=== PATIENT | female | born 1975 | race Caucasian/White ===

== ENCOUNTER 2019-06-22 10:53 | Inpatient (IN) | payer OTHER ==
[~2019-06-22] VITALS: Ht 157.5 cm; Wt 71.8 kg
[2019-06-22 11:02] VITALS: Ht 157.5 cm; Wt 71.8 kg
--- NOTE | 2019-06-22 11:06 | NUR ---
PT C/O NONRADIATING PRESSURE-LIKE CHEST PAIN WITH SOB, DIZZINESS, AND, N/V SINCE NOON YESTERDAY, -LOC, PT REPORTS BEING EMOTIONALLY UPSET AFTER AN ARGUMENT WITH HER SON YESTERDAY "BECAUSE HE TOOK PILLS AT SCHOOL AND IT WORRIED ME" PT AAOX4, RESPS E/U, LUNGS CTA, SKIN PINK DRY WARM, -DIZZINESS +NAUSEA -VOMITING AT THIS TIME, +PMSC TO ALL EXTREMITIES, PT GOWNED AND PLACED ON FULL CM, NSR, WITH SPOUSE AT BEDSIDE, PT AWAITING MSE
--- NOTE | 2019-06-22 11:08 | NUR ---
PT AMBULATORY WITH STEADY GAIT TO RESTROOM
--- NOTE | 2019-06-22 11:42 | NUR ---
MD AMBROCIO AT BEDSIDE PERFORMING MSE
--- NOTE | 2019-06-22 12:04 | NUR ---
PORTABLE CXR AT BEDSIDE
[2019-06-22 12:10] LABS: PLATELET COUNT 352 x10^3mcL (130-400); RED CELL DISTRIBUTION WIDTH 13.3 % (11.5-14.5)
--- NOTE | 2019-06-22 12:11 | NUR ---
PT DESAT TO 89 PERCENT SPO2 VIA RA, PT PLACED ON 2L O2 VIA NC, WITH SPO2 95 PERCENT, RESPS E/Y, NSR ON CM, SKIN PINK DRY AND WARM, MD AMBROCIO MADE AWARE,
--- NOTE | 2019-06-22 12:13 | NUR ---
PT MEDICATED PER MD ORDER SEE EMAR
[2019-06-22 12:16] LABS: CALCIUM 8.6 mg/dL (8.5-10.1); CARBON DIOXIDE 27.4 mmol/L (21-32); CHLORIDE SERUM 104 mmol/L (98-107); CREATININE SERUM 0.9 mg/dL (0.6-1.0); GFR1 > 60 mL/min; GLUCOSE SERUM 122 mg/dL (74-106); POTASSIUM SERUM 3.8 mmol/L (3.5-5.1); SODIUM SERUM 140 mmol/L (136-145)
[2019-06-22 12:21] LABS: ALBUMIN 3.4 g/dL (3.4-5.0); ALKALINE PHOSPHATASE 71 U/L (46-116); ALT/SGPT 22 U/L (14-59); AST/SGOT 19 U/L (15-37); BILIRUBIN TOTAL 1.1 mg/dL (0.20-1.00); TOTAL PROTEIN, SERUM 7.3 g/dL (6.4-8.2)
[2019-06-22 12:36] LABS: BAND NEUTROPHIL 11 % (0-10); BASOPHIL 0 % (0-2); MONOCYTE 3 % (0-7); SEGMENTED NEUTROPHILS 85 % (37-75)
[2019-06-22 12:37] LABS: PLATELET MORPHOLOGY PLATELETS NORMAL; rbc morphology (normal/abnorm) ABNORMAL (NORMAL)
--- NOTE | 2019-06-22 13:07 | NUR ---
PT RESTING IN POSITION OF COMFORT, RESPS E/U, NSR ON CM, SPOUSE AT BEDSIDE, WILL CONTINUE TO MONITOR
--- NOTE | 2019-06-22 13:14 | NUR ---
DR AMBROCIO MADE AWARE OF WBC 27.5
--- NOTE | 2019-06-22 14:16 | NUR ---
PT DENIES SOB AT THIS TIME, SPO2 94 PERCENT VIA RA, RESPS E/U, NSR ON CM, ROCEPHIN INFUSING PER MD ORDER AND EMAR, WILL CONTINUE TO MONITOR
[2019-06-22] MEDS ORDERED: ZYRTEC10 MG PO (14:17)
--- NOTE | 2019-06-22 15:18 | NUR ---
PT ASLEEP BUT AROUSABLE IN POSITION OF COMFORT, RESPS E/U, VSS, NSR ON CM, CALL LIGHT WITHIN REACH
[2019-06-22] MEDS ORDERED: ZYRTEC ALLERGY10 MG PO (15:54)
--- NOTE | 2019-06-22 16:38 | NUR ---
PT STS "I FEEL A LOT BETTER" RESPS E/U, VSS, NSR ON CM, SPOUSE AT BEDSIDE
--- NOTE | 2019-06-22 17:12 | NUR ---
REPORT GIVEN TO TO TIARRA PERERA, SHE INFORMED ME SHE WILL CONTACT ME WHEN THE PT RM IS CLEANED AND READY TO BE ADMITTED.
--- NOTE | 2019-06-22 17:50 | NUR ---
PT RESTING IN POSITION OF COMFORT. RESPS E/U, VSS, AT BEDSIDE
--- NOTE | 2019-06-22 18:01 | NUR ---
CONTACTED TIARRA PERERA, RM IS NOW CLEAN FOR PT ADMIT
[2019-06-22 18:05] VITALS: BP 100/63
--- NOTE | 2019-06-22 18:30 | NUR ---
ADMITTED PT FROM ED WITH DX PNA. PT IS A/A/OX4 DENIES STEWART. RESP EVEN AND UNLABORED WITH DIMINISHED BS BILAT WORST TO BILAT BASES. ON RA WITH DRY CAUGH. DENIES ANY SOB/CP/PRESSURE AT THIS TIME. REPORTS EPISODE OF CP, BACK PAIN AND N/V IN ED. REPORTS MILD DIZZINESS AT THIS TIME. CURRENTLY RELIEVED. ABD SOFT, NONTENDER WITH ACTIVE BS X4. DENIES ANY N/V AT THIS TIME. VOIDING FREELY AND AMBULATORY. SKIN WARM, DRY AND INTACT. IV SL TO LAC. ORIENTED TO ROOM AND CALL LIGHT. CALL LIGHT WITH IN REACH NEEDS ATTENDED TO.
[2019-06-22 18:39] VITALS: BP 122/71
--- NOTE | 2019-06-22 19:10 | NUR ---
RECEIVED REPORT FROM TIARRA PERERA. WILL RESUME CARE.
--- NOTE | 2019-06-22 19:25 | NUR ---
RECIEVED PT AAOX4. SPEECH CLEAR. ABLE TO FOLLOW COMMANDS AND MAKE NEEDS KNOWN. PUPILS 3MM BRISK. BREATHING E/U. ON RA. LUNG SOUNDS DIMINISHED TO BILATERAL LOBES. S1S2 AUSCULTATED WITH NO MURMURS NOTED. PT STATES NO PAIN AT THIS TIME. CAP REFILL <3 SEC. PULSES PALPABLE. NO EDEMA NOTED. L AC 20G WNL, DRESSING CDI. NS INFUSING AT 50CC/HR. SKIN INTACT AND COLOR APPROPRIATE FOR RACE. ABDOMEN SOFT, NONTENDER. BS ACTIVE X 4. PT DENIES ANY N/V AT THIS TIME. VOIDS FREELY AND STATES NO URINARY COMPLAINTS. BED IN LOW POSITION. CALL LIGHT WITHIN REACH. AT BEDSIDE. WILL CONTINUE TO MONITOR.
--- NOTE | 2019-06-22 21:13 | NUR ---
PT REFUSED PNEUMONIA VACCINE AT THIS TIME. PT STATES "I WOULD LIKE TO PERSONALLY TALK WITH THE DOCTOR TOMORROW ABOUT IT". VACCINE DISCONTINUED AT THIS TIME AND WILL ENDORSE TO ONCOMING RN.
[2019-06-22 21:17] VITALS: BP 94/47
--- NOTE | 2019-06-23 02:35 | NUR ---
PT SLEEPING COMFORTABLY IN BED AT THIS TIME. NAD NOTED. BREATHING E/U.
--- NOTE | 2019-06-23 04:24 | NUR ---
PT O2SAT AT 88% ON RA. PUT PT ON 2L NC, O2SAT 96%.
[2019-06-23 04:56] VITALS: BP 99/56
[2019-06-23 06:35] LABS: CALCIUM 8.4 mg/dL (8.5-10.1); CARBON DIOXIDE 28.9 mmol/L (21-32); CREATININE SERUM 1.1 mg/dL (0.6-1.0); POTASSIUM SERUM 3.8 mmol/L (3.5-5.1)
[2019-06-23 06:42] LABS: BASOPHIL % 0.2 % (0-2); PLATELET COUNT 331 x10^3mcL (130-400); RED CELL DISTRIBUTION WIDTH 13.2 % (11.5-14.5)
--- NOTE | 2019-06-23 07:30 | NUR ---
RECEIVED PATIENT SITTING UP IN BED. ALERT ORIENTED DENIES ANY CHEST PAIN COUGH OR SOB. IVF INFUSING WELL, SITE PATENT. PATIENT WAS ON O2 AT 2L AT THIS TIME, O2 SAT 98% SO O2 DISCONTINUED AT THIS TIME AND WILL MONITOR. LUNGS CLEAR RESP EVEN AND UNLABORED. AMBLATES AD JOEY. NO EDEMA NOTED PULSES PALABLE. NO ACUTE DISTRESS NOTED.
[2019-06-23 08:16] VITALS: BP 115/70
[2019-06-23 12:07] VITALS: BP 107/57
--- NOTE | 2019-06-23 13:41 | NUR ---
PATIENT HAS BEEN OOB AMBULATING IN HER ROOM. CONTINUES TO DENY AND COUGH OR SOB OR PAIN. BACK IN BED WATCHING TV. IVF INFUSING WELL. WILL CONTINUE TO MONITOR.
--- NOTE | 2019-06-23 15:28 | NUR ---
PATIENT REMAINS IN BED WATCHING TV. CONTINUES TO DENY ANY PAIN, SOB OR COUGH. NO CHANGE IN CONDITIION NOTED.
[2019-06-23 16:22] VITALS: BP 104/64
--- NOTE | 2019-06-23 16:49 | NUR ---
PATIENT REMAINS IN BED WATCHING TV. NO CHANGE IN CONDITION NOTED.
--- NOTE | 2019-06-23 17:01 | NUR ---
PATIENT'S PLAN OF CARE WAS DISCUSSED AND REVIEWED WITH NURSES AIDE:GREGOR PANDA. I HAVE REVIEWED THE DATA COLLECTION BY NURSES AIDE (NAME):GREGOR PANDA. ENTERED ON (DATE/TIME):06/23/19. I CONCUR WITH THE DATA AND ANY EXCEPTIONS OR COMMENTS ARE LISTED BELOW:
--- NOTE | 2019-06-23 17:15 | NUR ---
I HAVE REVIEWED THE DATA COLLECTION BY DEX (NAME): GREGOR PANDA ENTERED ON (DATE/TIME): 06/23/19 I CONCUR WITH THE DATA AND ANY EXCEPTIONS OR COMMENTS ARE LISTED BELOW:
[2019-06-23 19:38] VITALS: BP 127/78
--- NOTE | 2019-06-23 22:18 | NUR ---
RECEIVED PT IN BED TALKING TO HER SPOUSE , PT DENY SOB AT THE MOMENT , LUNG SOUNDS DIMINISSHED , NO RESP DISTRESS NOTED, HL TO LAC INTACT FLUSHING WELL . CALL LIGHT WIHIN PT'S REACH WILL CON'T TO MONITOR PT .
--- NOTE | 2019-06-24 02:58 | NUR ---
I HAVE REVIEWED THE DATA COLLECTION BY [employer]IO TECHNICIAN (NAME):JUAN DANIEL CH ENTERED ON (DATE/TIME): I CONCUR WITH THE DATA AND ANY EXCEPTIONS OR COMMENTS ARE LISTED BELOW:
[2019-06-24 04:48] VITALS: BP 104/60
[2019-06-24 06:24] LABS: BASOPHIL % 0.7 % (0-2); PLATELET COUNT 337 x10^3mcL (130-400); RED CELL DISTRIBUTION WIDTH 13.7 % (11.5-14.5)
--- NOTE | 2019-06-24 06:31 | NUR ---
NO RESP DISTRESS NOTED,. ALL DUE MEDS GIVEN NO REACTION NOTED, HL PATENT .
[2019-06-24 06:36] LABS: CALCIUM 8.4 mg/dL (8.5-10.1); CHLORIDE SERUM 107 mmol/L (98-107); CREATININE SERUM 0.9 mg/dL (0.6-1.0); GFR1 > 60 mL/min; GLUCOSE SERUM 91 mg/dL (74-106); POTASSIUM SERUM 3.9 mmol/L (3.5-5.1); SODIUM SERUM 143 mmol/L (136-145)
--- NOTE | 2019-06-24 07:23 | NUR ---
PT LYING IN BED A/A. BREATHING EQUAL UNLABORED ON RA. NO C/O COUGH/ PAIN AT THIS TIME. NO REDNESS/SWELLING TO IV SITE. BED IN LOW POSITION, CALL LIGHT IN REACH, WILL CONTINUE TO MONITOR
[2019-06-24] MEDS ORDERED: LEVAQUIN750 MG PO (08:32)
[2019-06-24 09:06] VITALS: BP 124/68
[2019-06-24] MEDS ORDERED: ADV100/50 (09:13)
[2019-06-24] MEDS ORDERED: HYDROXYZINE PAM25 MG (09:14)
[2019-06-24] MEDS ORDERED: ALBUTEROL0.63 MG/3 (09:14)
[2019-06-24] MEDS ORDERED: PROTONIX40 MG PO (09:15)
[2019-06-24 09:17] VITALS: BP 104/60
--- NOTE | 2019-06-24 09:44 | NUR ---
PT DC'D HOME, A/A, ORIENTED X 4. BREATHING EQUAL/ UNLABORED ON RA. NO C/O ACUTE DISTRESS/ PAIN/ SOB. EDUCATION PROVIDED TO PT, PT VERBALIZED UNDERSTANDING. PT WILL MAKE F/U APPT WITH PCP. NEW RX EXPLAINED/ GIVEN TO PT. IV REMOVED WITH CATHETER INTACT. NO REDNESS/ SWELLING TO IV SITE. PT BROUGHT DOWN TO LOBBY IN W/C, ACCOMPANIED BY BUMPER STRAIGHTENER. PT HAD ALL BELONGINGS WITH HER
== END 2019-06-24 09:49 | disposition home or self-care (01) | DRG 179 ==
LOC: ED 10:53 → MU 15:35
PROVIDERS: Emergency Medicine; ADMIT Internal Medicine Pulmonary Disease
DX: J15.8 Pneumonia due to other specified bacteria (principal); E86.0 Dehydration; Z88.1 Allergy status to other antibiotic agents; Z23 Encounter for immunization
CPT/HCPCS: G0378; J0456; J0696; J1650; J1885; J7030; J7060